=== PATIENT | female | born 1960 | race Hispanic/Latino ===

== ENCOUNTER 2023-12-10 06:57 | Observation (INO) | payer OTHER, MEDICARE ==
[2023-12-09 11:14] LABS: BASOPHILS # (AUTO) 0.04 K/uL (0.00-0.20); BASOPHILS % (AUTO) 0.7 % (0.0-5.0); EOSINOPHILS # (AUTO) 0.06 K/uL (0.00-0.70); HEMATOCRIT 41.6 % (36-48); IMMATURE GRANULOCYTE ABSOLUTE 0.02 K/uL (0-1); LYMPHOCYTES # (AUTO) 1.8 K/uL (1.0-4.8); MEAN CORPUSCULAR HEMOGLOBIN 30.5 pg (27.0-33.0); MEAN CORPUSCULAR HGB CONC 33.2 g/dL (32.0-36.0); MONOCYTES # (AUTO) 0.6 K/uL (0.1-1.0); MONOCYTES % (AUTO) 9.6 % (3.0-13.0); NEUTROPHILS # (AUTO) 3.5 K/uL (1.8-7.7); NEUTROPHILS % (AUTO) 58.4 % (40.0-77.0); PLATELET COUNT (AUTO) 203 K/uL (130-400); RED BLOOD CELL COUNT(AUTO) 4.52 MIL/uL (4.00-5.50); WHITE BLOOD COUNT (AUTO) 6.1 K/uL (4.8-10.8)
[2023-12-09 11:30] VITALS: BP 133/74; PULSE 62; RESP 18
[2023-12-09 11:32] LABS: CREATININE 0.8 mg/dL (0.5-1.0); POTASSIUM 4.1 mmol/L (3.5-5.1)
[~2023-12-10] VITALS: Ht 165.1 cm; Wt 88.5 kg
[2023-12-10] VITALS (28 sets, daily range): BP systolic 124–165; BP diastolic 66–85; PULSE 57–88; RESP 14–19
[~2023-12-10 06:57] MED LIST: ESOM40CA66 PO; GABA600T10 PO; HYDR12.54 PO; OLME40TA18 PO; PITA4TAB2 PO; Trintellix PO
[2023-12-10] MEDS ORDERED: AMIT10TA6 PO (08:36)
[2023-12-10] MEDS ORDERED: RIZA5TAB83 PO (08:36)
[2023-12-10] MEDS ORDERED: FOLIC ACID PO (08:36)
[2023-12-10] MEDS ORDERED: FLUT15.845 NS (08:36)
[2023-12-10] MEDS ORDERED: FAMO40TA7 PO (08:36)
[2023-12-10] MEDS ORDERED: PITA2TAB2 PO (08:36)
[2023-12-10] MEDS ORDERED: MONT-39 PO (08:36)
[2023-12-10] MEDS ORDERED: SUMA50TA17 PO (08:36)
[2023-12-10] MEDS ORDERED: AMLO2.5T4 PO (08:36)
[2023-12-10] MEDS: LACTATED RINGERS 1000ML 1,000 ML IV ONE (09:01)
[2023-12-10] MEDS: CEFAZOLIN SODIUM 2 GM VIAL ONE (09:01)
[2023-12-10] MEDS: HYDROMORPHONE 1 MG INJ ONE (13:27)
[2023-12-10] MEDS: ACETAMINOPHEN 1,000 MG/100 ML VIAL IV ONE (13:27)
[2023-12-10] MEDS ORDERED: FENTANYL CITRATE PF 50 MCG/1 ML 2ML VIAL ONE (13:29)
[2023-12-10] MEDS ORDERED: PROPOFOL 10 MG/ML 20ML VIAL IV ONE (13:29)
[2023-12-10] MEDS ORDERED: ROCURONIUM BROMIDE 10MG/1ML 5ML VL ONE (13:29)
[2023-12-10] MEDS ORDERED: MIDAZOLAM HCL 1 MG/ML 2ML VIAL ONE (13:29)
[2023-12-10] MEDS ORDERED: LIDOCAINE PF 100MG/5ML (2%) SYRINGE 5ML ONE (13:29)
[2023-12-10] MEDS: INDOCYANINE GREEN 25 MG VIAL IJ ONE (13:33)
[2023-12-10] MEDS ORDERED: SUCCINYLCHOLINE CHLORIDE 20 MG/ML 10 ML VIAL ONE (13:39)
[2023-12-10] MEDS ORDERED: DEXAMETHASONE SOD PHOSPHATE 4 MG/ML 1ML VIAL ONE (14:01)
[2023-12-10] MEDS ORDERED: ONDANSETRON 4MG INJ ONE (14:01)
[2023-12-10] MEDS: BUPIVACAINE/PF 0.25% 30ML VIAL IJ ONE (14:05)
[2023-12-10] MEDS ORDERED: GLYCOPYRROLATE 0.2 MG/ML 5 ML VIAL ONE (15:59)
[2023-12-10] MEDS: LACTATED RINGERS 1000ML 1,000 ML IV SCH (16:00)
[2023-12-10] MEDS ORDERED: HYDROMORPHONE 0.5 MG SYG (0.5MG/0.5ML) IVP PRN (16:00)
[2023-12-10] MEDS ORDERED: NEOSTIGMINE METHYLSULFATE 1MG/ML IV ONE (16:00)
[2023-12-10] MEDS ORDERED: SUMATRIPTAN SUCCINATE 50 MG PO PRN (16:00)
[2023-12-10] MEDS ORDERED: PROCHLORPERAZINE 10MG/2ML INJ IV PRN (16:00)
[2023-12-10] MEDS ORDERED: ONDANSETRON 4MG INJ IVP PRN (16:00)
[2023-12-10] MEDS: MEPERIDINE-PF 25 MG/ML SYG ONE ×2 (16:36→16:49)
[2023-12-10] MEDS: PHARMACY COMMUNICATION MISC SCH (17:00)
[2023-12-10] MEDS: KETOROLAC 30MG VIAL (30MG/ML) IV PRN (19:45)
[2023-12-10] MEDS: ENOXAPARIN SODIUM 30 MG/0.3 ML SQ SCH (20:20)
[2023-12-10] MEDS: MONTELUKAST SODIUM 10 MG TAB PO SCH (20:20)
[2023-12-10] MEDS: GABAPENTIN 300 MG CAPSULE PO SCH (20:20)
[2023-12-10] MEDS: AMITRIPTYLINE 10MG TAB PO SCH (20:20)
[2023-12-10] MEDS ORDERED: NON-FORMULARY MEDICATION 1 EACH (Gabapentin 600 MG) PO SCH (21:00)
[2023-12-10] MEDS: TRINTELLIX 20 MG PO SCH (21:00)
[2023-12-10] MEDS: Olmesartan 40 MG PO SCH (21:00)
[2023-12-11] VITALS: BP 150/89; PULSE 88; RESP 18
[2023-12-11 04:21] VITALS: BP 140/81; PULSE 86; RESP 18
[2023-12-11] MEDS ORDERED: KETOROLAC 15MG/ML VIAL (15MG/ML) IV PRN (06:30)
[2023-12-11 07:38] VITALS: BP 146/78; PULSE 76; RESP 19
[2023-12-11] MEDS ORDERED: FLUTICASONE PROPIONATE 50MCG/SPRAY 16 GM BOTTLE EN SCH (09:00)
[2023-12-11] MEDS ORDERED: NON-FORMULARY MEDICATION 1 EACH (Gabapentin 300 MG) PO SCH (09:00)
[2023-12-11] MEDS ORDERED: NON-FORMULARY MEDICATION 1 EACH (Famotidine 40 MG) PO SCH (09:00)
[2023-12-11] MEDS ORDERED: FLUTICASONE PROPIONATE NS SCH (09:00)
[2023-12-11] MEDS: AMLODIPINE 2.5 MG TAB PO SCH (09:16)
[2023-12-11] MEDS: GABAPENTIN 300 MG CAPSULE PO SCH (09:16)
[2023-12-11] MEDS: FAMOTIDINE 20MG TAB PO SCH (09:16)
[2023-12-11] MEDS: HYDROCODONE/ACETAMINOPHEN 7.5/325 MG 15 ML UDCUP PO PRN (09:21)
[2023-12-11 11:29] VITALS: BP 138/82; PULSE 72; RESP 18
== END 2023-12-11 13:15 | disposition home or self-care (01) ==
LOC: DAH 06:57 → DAHIP 06:58 → 4BH 17:40
PROVIDERS: ADMIT Surgery; ATTEND Surgery
DX: K44.9 Diaphragmatic hernia without obstruction or gangrene (principal); K21.9 Gastro-esophageal reflux disease without esophagitis; I10 Essential (primary) hypertension; E78.5 Hyperlipidemia, unspecified; J45.909 Unspecified asthma, uncomplicated; M79.7 Fibromyalgia; F41.9 Anxiety disorder, unspecified; K31.84 Gastroparesis; E66.01 Morbid (severe) obesity due to excess calories; Z79.899 Other long term (current) drug therapy
CPT/HCPCS: 80048; 85025; 86850; 86900; 86901; 36415; 93005; 43280; 96374; 96372 ×2; 82948 ×5; 97116; 97530; A6260; S2900; G0378 ×19; A4663; A4215 ×2; J7120; J3010; J1170; J0330; J0665; J3490 ×2; J2001; J1650 ×2; J2250; J2704; J2405; J1885; J2710; J1100; J2175 ×2; J0690; G0168; C1769; A4930; C1781; A4223; A4222; A4221; A4600; G8980; G8983; 43235

== ENCOUNTER 2024-03-11 07:45 | Day surgery (SDC) | payer OTHER, MEDICARE ==
[~2024-03-11] VITALS: Ht 165.1 cm; Wt 82.1 kg
[2024-03-11] VITALS (11 sets, daily range): BP systolic 104–133; BP diastolic 51–69; PULSE 50–64; RESP 14–17; TEMP 97.1–98.1
[~2024-03-11 07:45] MED LIST changes: +AMIT10TA6 PO; +AMLO2.5T4 PO; -ESOM40CA66 PO; +FAMO40TA7 PO; +FLUT15.845 NS; +FOLIC ACID PO; +GABA-1405 PO; -GABA600T10 PO; +MONT-39 PO; +PITA2TAB2 PO; -PITA4TAB2 PO; +RIZA5TAB83 PO; +SUMA50TA17 PO
[2024-03-11] MEDS: 0.9%NACL 1000ML 1,000 ML IV ONE (08:46)
[2024-03-11] MEDS ORDERED: proPOFol 10 MG/ML 20ML VIAL IV ONE (09:34)
== END 2024-03-11 11:15 | disposition home or self-care (01) ==
LOC: DAH 07:45
PROVIDERS: ATTEND Surgery
DX: R10.13 Epigastric pain (principal); K29.50 Unspecified chronic gastritis without bleeding; K22.89 Other specified disease of esophagus; K31.89 Other diseases of stomach and duodenum; E78.5 Hyperlipidemia, unspecified; F41.9 Anxiety disorder, unspecified; K21.9 Gastro-esophageal reflux disease without esophagitis; I10 Essential (primary) hypertension; K44.9 Diaphragmatic hernia without obstruction or gangrene; K31.84 Gastroparesis; E66.01 Morbid (severe) obesity due to excess calories; J45.909 Unspecified asthma, uncomplicated; Z68.30 Body mass index [BMI] 30.0-30.9, adult; Z90.49 Acquired absence of other specified parts of digestive tract; R63.30 Feeding difficulties, unspecified; Z79.899 Other long term (current) drug therapy; Z98.890 Other specified postprocedural states
CPT/HCPCS: 43239; J7030 ×2; J2704; A4615; A7002; J3490